=== PATIENT | male | born 1990 | race American Indian/Alaskan Native ===

== ENCOUNTER 2019-05-12 22:31 | Emergency (ER) | payer OTHER ==
[2019-05-12 22:37] VITALS: BP 146/70; PULSE 101
[2019-05-12] MEDS ORDERED: Lidocaine 1% 30 ML SDV INJECT ONE (22:51)
[2019-05-12] MEDS ORDERED: Silver Nitrate Applicator Each ONE (23:13)
[2019-05-12] MEDS ORDERED: Silver Nitrate Applicator Each TOP ONE (23:17)
[2019-05-13] MEDS ORDERED: Bacitracin Oint 1 GM U/D Packet TOP ONE (00:12)
[2019-05-13] MEDS ORDERED: Clindamycin HCl 150 MG Cap PO ONE (00:13)
--- NOTE | 2019-05-13 00:19 | EDM.PDOC ---
ED HPI GENERAL MEDICAL PROBLEM - General Chief Complaint: Laceration Stated Complaint: AMB Time Seen by Provider: 05/12/19 22:35 Source of Information: Reports: Patient, EMS History Limitations: Reports: No Limitations - History of Present Illness INITIAL COMMENTS - FREE TEXT/NARRATIVE: puncture wound left hand from fillet knife when getting into car, did not know knife on seat when got in. At [facility] ambulance bay around 2130 and bleeding controlled, got home, washing hand and removed bandage and blood started gushing , EMS reported uncontrolled with just pressure, arrival with tourniquet above wrist. Left Hand Pain Score (Numeric/FACES): 4 - Related Data Allergies Allergy/AdvReac Type Severity Reaction Status Date / Time Penicillins Allergy Cannot Verified 05/12/19 22:38 Remember Home Meds: Home Meds . [No Known Home Meds] 08/11/13 [History] Past Medical History - Past Health History Medical/Surgical History: Denies Medical/Surgical History Dermatologic History: Reports: Eczema Social & Family History - Family History Family Medical History: Noncontributory - Tobacco Use Smoking Status *Q: Current Every Day Smoker Years of Tobacco use: 10 Packs/Tins Daily: 1 Second Hand Smoke Exposure: Yes - Recreational Drug Use Recreational Drug Use: Yes Drug Use in Last 12 Months: Yes Recreational Drug Type: Reports: Marijuana/Hashish ED ROS GENERAL - Review of Systems Review Of Systems: Comprehensive ROS is negative, except as noted in HPI. ED EXAM, SKIN/RASH Exam: See Below Exam Limited By: No Limitations General Appearance: Alert, Mild Distress Eye Exam: Bilateral Eye: PERRL Ears: Normal External Exam Nose: Normal Inspection Throat/Mouth: Normal Inspection Head: Atraumatic, Normocephalic Neck: Normal Inspection, Full Range of Motion Respiratory/Chest: No Respiratory Distress, Lungs Clear Cardiovascular: Regular Rate, Rhythm GI/Abdominal: Soft Back Exam: Full Range of Motion Extremities: Other (laceration left thenar web, pressure dressing in place tournequet via EMS. ) Neurological: Alert, Oriented, Normal Cognition Psychiatric: Normal Affect Skin: Warm. No: Intact (4mm puncture ound left thenar web, arterial beeding controled with pressure and tourniquet. ) Location, Skin: Upper Extremity, Left Associated features: Tenderness ED SKIN PROCEDURES - Laceration/Wound Repair Left Hand Appearance: Subcutaneous, Clean Distal NVT: No Tendon Injury, Other (arterial bleed) Anesthetic Type: Local Local Anesthesia - Lidocaine (Xylocaine): 1% Plain Local Anesthetic Volume: 3cc Skin Prep: Chlorhexidine (Hibiciens), Saline Exploration/Debridement/Repair: Wound Explored Closed with: Sutures Lac/Wound length In cm: 0.4 # of Sutures: 1 Suture Type: Nylon, Interrupted Sterile Dressing Applied: Nurse Tetanus Status Addressed: Yes Course - Vital Signs Last Recorded V/S: Last Vital Signs Temp 97.9 F 05/12/19 22:31 Pulse 101 H 05/12/19 22:31 Resp 18 05/12/19 22:31 BP 146/70 H 05/12/19 22:31 Pulse Ox 99 05/12/19 22:31 - Orders/Labs/Meds Meds: Medications Discontinued Medications Generic Name Dose Route Start Last Admin Trade Name Freq PRN Reason Stop Dose Admin Bacitracin 1 dose 05/13/19 00:12 05/13/19 00:16 Bacitracin Oint 1 Gm TOP 05/13/19 00:13 1 dose ONETIME ONE Administration Clindamycin HCl 300 mg 05/13/19 00:13 05/13/19 00:18 Cleocin PO 05/13/19 00:14 300 mg ONETIME ONE Administration Lidocaine HCl 30 ml 05/12/19 22:51 05/12/19 23:00 Xylocaine-Mpf 1% INJECT 05/12/19 22:52 30 ml ONETIME ONE Administration Silver Nitrate Confirm 05/12/19 23:13 05/12/19 23:18 Silver Nitrate Administered 05/12/19 23:14 Not Given Dose 3 each .ROUTE .STK-MED ONE Silver Nitrate 3 each 05/12/19 23:17 05/12/19 23:18 Silver Nitrate TOP 05/12/19 23:18 3 each ONETIME ONE Administration - Re-Assessments/Exams Free Text/Narrative Re-Assessment/Exam: Tourniquet palced by EMS for control of bleeding. Light pressure dressing in place Immediate active arterial bleeding with loosening of pressure dressing. Attempt to locate bleeder,, Surgicell foam placement without sucess, Tourniquet removed. Blind suture placement with sucess. stasis maintained. Dressing applied. arm elevated, in sling, pulses and sensation intact. Departure - Departure Time of Disposition: 00:16 Disposition: Home, Self-Care 01 Condition: Good Clinical Impression: Puncture wound - injury - Discharge Information *PRESCRIPTION DRUG MONITORING PROGRAM REVIEWED*: No *COPY OF PRESCRIPTION DRUG MONITORING REPORT IN PATIENT JASON: No Instructions: Laceration Care, Adult, [id number] Referrals: PCP,Unobtain [Ordering Only Provider] - Forms: ED Department Discharge Additional Instructions: suture out 5 days sling elevate do not use hand 24 hours wash wound twice daily keep wound covered recheck clinic Wednesday tylenol 650mg every 4 hours as needed for discomfort ice pack tonight 20minutes every 2-3 hours Sepsis Event Note - Evaluation Sepsis Screening Result: No Definite Risk - Focused Exam Date Exam was Performed: 05/14/19 Time Exam was Performed: 03:22
== END 2019-05-13 00:23 | disposition home or self-care (01) ==
LOC: DL.ED 22:31
DX: S61.432A Puncture wound without foreign body of left hand, initial encounter (principal); F17.210 Nicotine dependence, cigarettes, uncomplicated; Z88.0 Allergy status to penicillin; W26.0XXA Contact with knife, initial encounter; Y92.810 Car as the place of occurrence of the external cause
CPT/HCPCS: 12001; 99283; A9270; J2001

== ENCOUNTER 2024-09-04 22:16 | Emergency (ER) | payer SELFPAY ==
[2024-09-04 22:36] VITALS: BP 140/96; PULSE 87
== END 2024-09-04 22:26 | disposition left against medical advice (07) ==
LOC: DL.ED 22:16
DX: Z53.21 Procedure and treatment not carried out due to patient leaving prior to being seen by health care provider (principal)

== ENCOUNTER 2024-10-05 13:16 | Emergency (ER) | payer SELFPAY ==
[2024-10-05] MEDS: Bacitracin Oint 1 GM U/D Packet TOP ONE (13:38)
[2024-10-05 14:13] VITALS: BP 134/87; PULSE 72
== END 2024-10-05 13:52 ==
LOC: DL.ED 13:16
DX: S81.802A Unspecified open wound, left lower leg, initial encounter (principal); Z88.0 Allergy status to penicillin; X58.XXXA Exposure to other specified factors, initial encounter
CPT/HCPCS: 99283; A9270